=== PATIENT | female | born 1985 | race Caucasian/White ===

== ENCOUNTER 2024-05-09 10:35 | Outpatient (AMB) | payer BC, SELFPAY ==
--- NOTE | 2024-05-09 10:44 | AMB.GYNCLNOT ---
Vital Signs 05/09/24 10:52 Height 1.65 m Height Method Stated Weight 113.908 kg Weight Measurement Method Standing Scale BMI 41.8 BP 114/76 Blood Pressure Source Automatic Cuff Blood Pressure Location Left Upper Arm Position Sitting Respiration 16 Pulse 89 Pulse Source Monitor Temp 98.1 F Temp Source Oral Pulse Oximetry (%) 98 Oxygen Delivery Method Room Air Allergies/Home Meds Allergies & Medications Allergies No Known Allergies Allergy (Verified 05/09/24 10:54) Medication Reconciliation semaglutide (weight loss) 0.5 mg/0.5 mL subcutaneous pen injector (Wegovy) 0.5 mg subcut QWEEK 05/09/24 [History Confirmed 05/09/24] Intake Visit Data Collection New Patient or Established: New Patient (never been to [facility]) Reason for Visit:: ANNUAL WELLNESS Seen by Clinical Staff ONLY (RN/MA): No Director Of Restaurants Required: No Do You Feel Safe at Home: Yes Authorities Contacted: N/A PCP or OBGYN visit in last 3 months: No Hx Now: No Are you currently on any form of Control: No Last menstrual period: 04/17/24 Pain Present Currently: No Pain Scale Used: Alvarez-Rodríguez/Numerical Pain scale:: 0 Smoking Status Smoking Status: Never smoker 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 1. Little interest or pleasure in doing things: not at all 2. Feeling down, depressed, or hopeless: not at all Total score: 0 PHQ-9 3. Trouble falling or staying asleep, or sleeping too much: Not at all 4. Feeling tired or having little energy: Not at all 5. Poor appetite or overeating: Not at all 6. Feeling bad about yourself - or that you are a failure or have let yourself or your family down: Not at all 7. Trouble concentrating on things, such as reading the newspaper or watching television: Not at all 8. Moving or speaking so slowly that other people could have noticed? - Or the opposite - being so fidgety or restless that you have been moving around a lot more than usual: not at all 9. Thoughts that you would be better off or of hurting yourself in some way: Not at all Total score: 0 Source: Developed by Drs. Kd Levin, Alesia Garcia, David Gomez and colleagues, with an educational albert from [employer]. 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 [employer] Tobacco History Smoking Status: Never smoker Second Hand Smoke Exposure: No Alcohol History Alcohol Intake: Current Alcohol Intake Frequency: holidays/special occasions only Substance Use History Substance Use: NONE Domestic Abuse History Do You Feel Safe at Home: Yes Past Medical History Past Medical History Have you ever been diagnosed with any of the following: Neurological Problems Transient Ischemic Attacks (TIA): No Brain Tumor: No Meningitis: No Seizures: No Migraine: No Cardiology Problems Heart Murmur: No Hypercholesterolemia: No Deep Vein Thrombosis: No Hypertension: No Respiratory Problems Asthma: No Pulmonary Embolism: No Sleep Apnea: No Stomache/Intestinal Problems Pancreatic Cancer: No Celiac Disease: No Gall Bladder Disease: No Obesity: Yes (On Wegovy) Genital/Urinary Problems Kidney Stones: No Reproductive Problems Breast Cancer: No Endometriosis: No Fibroids: No Genital Herpes: No Gonorrhea: No Pelvic Inflammatory Disease: No Polycystic Ovarian Syndrome: No Previous Pregnancies: Yes (History of vaginal delivery x 3 in the past) Syphilis: No Musculoskeletal Problems Arthritis: No Rheumatoid Arthritis: No Carpal Tunnel Syndrome: No Fibromyalgia: No Head,Eye,Nose,Throat Problems Glaucoma: No Endocrine Problems Diabetes Mellitus Type 2: No Hyperthyroidism: No Hypothyroidism: No Systemic Lupus Erythematosus: No Blood Problems Anemia: No Clotting Problems: No Psychologic Problems Anxiety: No Other Problems Hospitalization: Yes (For childbirth x 3) Autoimmune Disease: No Cosmetic Surgery: No Anesthesia Reactions: No Surgical History Appendectomy: No Bariatric Surgery: No Breast Surgery: No Colectomy: No History of Present Illness HPI Narrative The patient is a 38-year-old -0-0-3 who used to see me in [place] who presents for an annual exam. She has no gynecological complaints today. She has an 18-year-old son who is in [employer] , a 14-year-old daughter who is an 8th grade student and a 5-year-old daughter. Her Meño has had a vasectomy for contraception. 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 She has a history of a maternal grandmother with breast cancer a paternal grandmother with uterine cancer,no other cancer in the family. Her primary care is count includes the [facility] in [place] and she had labs within the past year. Patient denies hot flashes. Her cycles are regular monthly lasting 5 to 6 days they are not heavy. Her 's had a vasectomy for contraception. Review of Systems Review of Systems Narrative Review of Systems: No urinary complaints no breast complaints no painful intercourse no bleeding between cycles no abnormal vaginal discharge. No new partners. Systems Reviewed: All systems reviewed, normal except as documented Exam General Limitations: no limitations General Appearance: alert, in no apparent distress, comfortable, cooperative, healthy appearing and well groomed Neck Neck exam: Present normal inspection, full ROM and trachea midline Chest Chest inspection: Present normal inspection and symmetric chest wall rise Exp Chest Breast: bilateral: other (Breast exam normal bilaterally.) Resp Respiratory exam: Present normal lung sounds bilaterally Card Cardiovascular exam: Present regular rate, normal rhythm and normal heart sounds Abdominal Abdominal exam: Present soft and normal bowel sounds External exam: Present normal external exam Speculum exam: Present normal speculum exam Bimanual exam: Present normal bimanual exam Extremities Extremities exam: Present normal inspection and full ROM Back Back exam: Present normal inspection and full ROM Psych Psychiatric exam: Present normal affect and normal mood Skin Skin exam: Present warm, dry, intact and normal color Assessment & Plan Diagnosis / Problem List (1) Encounter for Routine Gynecological Examination: Qualifiers: Gynecological examination findings: abnormal findings ABSENT Qualified Code(s): Z01.419 - Encounter for gynecological examination (general) (routine) without abnormal findings Plan: Annual exam. Pap with co-testing to high risk HPV is performed breast exam done encouraged mammogram starting at age 40 were encouraged. Additional Plan Follow Up: 1 Year Office Procedures OB Clinic LOC & Office Proc's Nursing/Assessment Patient Status: Initial/New Patient OB Clinic Nursing Assessment: Medication Reconciliation, Update PMH in EMR and Vital Signs OB Clinic Coordination of Care: Complex Care and Chronic Disease 1-5, Consent,records obtained, informed consent, Education Simp Pt/Fam, Lab and Imaging orders and Staff clarify orders Miscellaneous Interventions: Breast Exam and Pelvic/Pap Smear Set up New Patient Charge New Patient Point Assignment: 1149 New Patient Point Charge: PHOTOGRAPHER MOTION PICTURE Level 4 ([id number]) In Clinic Procedures Pap Smear: Yes
[2024-05-09 10:52] VITALS: BP 114/76; PULSE 89; RESP 16; TEMP 36.7; O2SAT 98; BMI 41.8
== END 2024-05-09 11:38 | disposition home or self-care (01) ==
LOC: HODSOBC 10:35
PROVIDERS: PCP Nurse Practitioner Family; Referring Provider Nurse Practitioner Family; Supervising Provider Obstetrics & Gynecology; Visit Provider Obstetrics & Gynecology
DX: Z01.419 Encounter for gynecological examination (general) (routine) without abnormal findings (principal); Z11.51 Encounter for screening for human papillomavirus (HPV)
CPT/HCPCS: 99204; Q0091; G0463